=== PATIENT | female | born 1960 | race Hispanic/Latino ===

== ENCOUNTER 2019-09-22 05:37 | Inpatient (IN) | payer MEDICAID ==
[~2019-09-22] VITALS: Ht 162.6 cm; Wt 67.6 kg
[2019-09-22] VITALS (14 sets, daily range): BP systolic 114–141; BP diastolic 62–77
[~2019-09-22 05:37] MED LIST: ABAC1TAB17 PO; ATOR40TA69 PO; DOLU50TA PO; ESCI10TA54 PO; ESTRADIOL PO; LEVO100T12 PO; LOSA50TA64 PO; MARA150T PO; NAPR-1023 PO; VITAD50000 PO
[2019-09-22 06:15] LABS: BASOPHILS % (AUTO) 0.5 % (0.0-5.0); EOSINOPHILS % (AUTO) 2.4 % (0.0-8.0); HEMATOCRIT 40.2 % (36-48); LYMPHOCYTES % (AUTO) 24.5 % (21.0-51.0); MEAN CORPUSCULAR HEMOGLOBIN 32.8 pg (27.0-33.0); MEAN CORPUSCULAR HGB CONC 33.3 g/dL (32.0-36.0); MEAN CORPUSCULAR VOLUME 98.5 fL (79-99); MONOCYTES % (AUTO) 7.8 % (3.0-13.0); NEUTROPHILS % (AUTO) 64.6 % (40.0-77.0); PLATELET COUNT (AUTO) 205 K/uL (130-400); RED BLOOD CELL COUNT(AUTO) 4.08 MIL/uL (4.00-5.50); RED CELL DISTRIBUTION WIDTH 13.1 % (11.0-15.5); WHITE BLOOD COUNT (AUTO) 5.9 K/uL (4.8-10.8)
[2019-09-22 06:25] LABS: APPEARANCE,URINE Clear (CLEAR); BILIRUBIN,URINE Negative (NEGATIVE); COLOR,URINE Yellow (YELLOW); GLUCOSE, URINE (UA) Negative (NEGATIVE); KETONES,URINE Negative (NEGATIVE); LEUKOCYTE ESTERASE ,URINE Trace (NEGATIVE); NITRATE,URINE Negative (NEGATIVE); OCCULT BLOOD,URINE Negative (NEGATIVE); PROTEIN,URINE Negative (NEGATIVE); UROBILINOGEN,URINE 0.2 mg/dL (0.2-1.0)
[2019-09-22 06:26] LABS: CREATININE 0.8 mg/dL (0.5-1.5)
[2019-09-22 06:29] LABS: INR 0.98 (0.85-1.15); PARTIAL THROMBOPLASTIN TIME 29.6 SEC (26.3-35.5); PROTHROMBIN TIME 10.6 SEC (9.6-11.6)
[2019-09-22 07:02] LABS: BACTERIA,URINE Rare /HPF (None Seen); RBC,URINE 0-1 /HPF (0-1); SQUAMOUS EPITHELIAL CELL,UR Rare /HPF (0-2); WBC,URINE 0-1 /HPF (0-1)
[2019-09-22] MEDS ORDERED: LORA10TA7 PO (07:06)
[2019-09-22] MEDS ORDERED: NITROGLYCERIN 2 MG/VIAL VIAL IV ONE (07:17)
[2019-09-22] MEDS ORDERED: HEPARIN SODIUM 1000UNIT/ML 10ML VIAL ONE (07:17)
[2019-09-22] MEDS ORDERED: IOHEXOL 350 MG/ML 100ML INFUS..BTL IV ONE (07:17)
[2019-09-22] MEDS ORDERED: IOHEXOL-350 50ML VIAL IV ONE (07:17)
[2019-09-22] MEDS ORDERED: LIDOCAINE HCL 2% 20ML ONE (07:18)
[2019-09-22] MEDS ORDERED: SODIUM CHLORIDE 0.9% 1000ML 1,000 ML IV ONE (07:51)
[2019-09-22] MEDS ORDERED: DEXTROSE 50%-WATER 50 ML DISP.SYRIN IV PRN (08:30)
[2019-09-22] MEDS ORDERED: GLUCAGON 1MG KIT 1 MG ML IM PRN (08:30)
[2019-09-22] MEDS ORDERED: NAPROXEN 500 MG TABLET PO PRN (13:00)
--- NOTE | 2019-09-22 14:02 | NUR ---
TRANSFER REPORT GIVEN BY GENNARO ARCHULETA TO GENNARO GORDON. PT TRANSFERRED VIA BED TO ROOM 418. PT DENIES ANY PAIN, SOB AT THIS TIME. SITE TO RIGHT FEMORAL AREA DRY AND INTACT. SOFT TO TOUCH.
--- NOTE | 2019-09-22 14:15 | NUR ---
TRANSFER FROM DAYPATIENT RECEIVED PT IN SEMI MORRIS'S POSITION, A&OX3, CALM COOPERATIVE AND DOES NOT APPEAR TO BE IN ANY DISTRESS NOR ANY NEURO DEFICITS PRESENT. RT GROIN SOFT NONTENDER WITH NO OOZING OR HEMATOMA PRESENT, DP/PT PRESENT. CALL LIGHT WITHIN REACH.
[2019-09-22] MEDS: CITALOPRAM 20 MG TABLET PO SCH (14:31)
[2019-09-22] MEDS ORDERED: ACETAMINOPHEN 325 MG TAB PO PRN (16:00)
[2019-09-22] MEDS ORDERED: TRAMADOL HCL 50 MG TABLET PO PRN (16:00)
[2019-09-22] MEDS: DOLUTEGRAVIR SODIUM 50 MG PO SCH (21:00)
[2019-09-22] MEDS: ABACAVIR SULFATE PO SCH (21:00)
[2019-09-22] MEDS: MARAVIROC 150 MG PO SCH (21:00)
[2019-09-22] MEDS: ATORVASTATIN CALCIUM 40 MG TABLET PO SCH (21:00)
[2019-09-22] MEDS: LAMIVUDINE PO SCH (21:00)
[2019-09-22] MEDS: LORATADINE 10 MG TABLET PO SCH (21:18)
[2019-09-23] VITALS (19 sets, daily range): BP systolic 103–178; BP diastolic 49–89
[2019-09-23 04:18] LABS: HEMATOCRIT 41.2 % (36-48); MEAN CORPUSCULAR HGB CONC 33.5 g/dL (32.0-36.0); MEAN CORPUSCULAR VOLUME 98.6 fL (79-99); RED BLOOD CELL COUNT(AUTO) 4.18 MIL/uL (4.00-5.50); RED CELL DISTRIBUTION WIDTH 13.2 % (11.0-15.5); WHITE BLOOD COUNT (AUTO) 7.5 K/uL (4.8-10.8)
[2019-09-23 04:39] LABS: PARTIAL THROMBOPLASTIN TIME 28.9 SEC (26.3-35.5); PROTHROMBIN TIME 10.8 SEC (9.6-11.6)
[2019-09-23 05:00] LABS: BILIRUBIN,TOTAL 0.7 mg/dL (0.2-1.0); CREATININE 0.8 mg/dL (0.5-1.5); TOTAL PROTEIN, SERUM 7.7 g/dL (6.0-8.3)
[2019-09-23 05:16] LABS: POTASSIUM 4.4 mmol/L (3.5-5.1)
[2019-09-23] MEDS ORDERED: AMINOCAPROIC ACID 15,000 MG in SODIUM CHLORIDE 0.9% 500ML 420 ML IV PRN (06:00)
[2019-09-23] MEDS ORDERED: EPINEPHRINE 10 MG in SODIUM CHLORIDE 0.9% 240 ML IV PRN (06:00)
[2019-09-23] MEDS ORDERED: NOREPINEPHRINE BITARTRATE 8 MG in DEXTROSE 5%-WATER 250 ML IV PRN (06:00)
[2019-09-23] MEDS: LEVOTHYROXINE 100 MCG TABLET PO SCH (06:19)
[2019-09-23] MEDS ORDERED: LOSARTAN 50 MG TABLET PO SCH (09:00)
[2019-09-23] MEDS: MARAVIROC 150 MG PO SCH ×2 (09:00→19:59)
[2019-09-23] MEDS: ESTRADIOL 0.5 MG TABLET PO SCH (09:06)
[2019-09-23] MEDS: CITALOPRAM 20 MG TABLET PO SCH (09:06)
[2019-09-23] MEDS ORDERED: AMINOCAPROIC ACID 15,000 MG in SODIUM CHLORIDE 0.9% 500ML 500 ML IV PRN (10:15)
[2019-09-23] MEDS ORDERED: CEFAZOLIN SODIUM 1 GM VIAL ONE (10:37)
[2019-09-23] MEDS ORDERED: AMIODARONE HCL 50 MG/ML 3 ML VIAL ONE (10:43)
[2019-09-23] MEDS ORDERED: NITROGLYCERIN 50 MG/D5% WATER 1 BOT ONE (10:44)
[2019-09-23] MEDS ORDERED: ROPIVACAINE 0.5% 5MG/ML 30ML IJ ONE (11:03)
[2019-09-23] MEDS ORDERED: CEFAZOLIN SODIUM 1 GM VIAL IVP PRN (12:00)
[2019-09-23] MEDS ORDERED: ROPIVACAINE 0.2% 2MG/ML 100ML VIAL IJ ONE (12:25)
[2019-09-23] MEDS ORDERED: AMINOCAPROIC ACID 250 MG/ML 20 ML VIAL IV ONE ×2 (12:29→13:06)
[2019-09-23] MEDS ORDERED: CALCIUM CHLORIDE 100 MG/ML 10 ML SYG IVP ONE (12:29)
[2019-09-23] MEDS ORDERED: HEPARIN SODIUM 1000UNIT/ML 10ML VIAL IV ONE (12:29)
[2019-09-23] MEDS ORDERED: PHENYLEPHRINE HCL 10 MG/ML 1ML VIAL IV ONE (12:29)
[2019-09-23] MEDS ORDERED: MAGNESIUM SULFATE 1 GM/2 ML VIAL IM ONE (12:29)
[2019-09-23] MEDS ORDERED: SODIUM BICARB 8.4% 50ML SYRINGE IVP ONE (12:29)
[2019-09-23] MEDS ORDERED: ALBUMIN (HUMAN) 25% 50 ML IV ONE (12:29)
[2019-09-23] MEDS ORDERED: LIDOCAINE PF 2% 5ML ABBOJECT IVP ONE (12:29)
[2019-09-23] MEDS ORDERED: MANNITOL 25% 50ML VIAL IV ONE (12:29)
[2019-09-23] MEDS: ERGOCALCIFEROL (VITAMIN D2) 50,000 UNIT CAPSULE PO SCH (13:00)
[2019-09-23] MEDS ORDERED: MIDAZOLAM HCL 1 MG/ML 2ML VIAL ONE ×2 (13:03→13:06)
[2019-09-23] MEDS ORDERED: ESMOLOL HCL 10 MG/ML 10 ML VIAL ONE (13:05)
[2019-09-23] MEDS ORDERED: LIDOCAINE PF 2% 5ML ABBOJECT ONE (13:05)
[2019-09-23] MEDS ORDERED: PROTAMINE SULFATE 10 MG/ML 25ML VIAL IV ONE (13:05)
[2019-09-23] MEDS ORDERED: NOREPINEPHRINE BITARTRATE 1 MG/1 ML ML IV ONE (13:06)
[2019-09-23] MEDS ORDERED: ROCURONIUM 10MG/1ML SYR 10 MG/ML ML ONE (13:06)
[2019-09-23] MEDS ORDERED: FENTANYL CITRATE PF 50 MCG/1 ML 20ML VIAL IJ ONE (13:06)
[2019-09-23] MEDS ORDERED: PROPOFOL 10 MG/ML 20ML VIAL IV ONE (13:06)
[2019-09-23] MEDS ORDERED: HEPARIN SODIUM 1000UNIT/ML 10ML VIAL ONE (13:06)
[2019-09-23] MEDS ORDERED: EPINEPHRINE 1 MG/ML AMPULE ONE (13:06)
[2019-09-23] MEDS ORDERED: SODIUM BICARB 50MEQ 50ML VIAL ONE (13:06)
[2019-09-23] MEDS ORDERED: KETAMINE 50MG/ML SYRINGE 50 MG/ML DISP.SYRIN IV ONE (13:07)
[2019-09-23] MEDS ORDERED: DELNIDO FORMULA 1 BAG IV ONE (13:23)
[2019-09-23 13:29] LABS: ABG BASE EXCESS -0.3 mmol/L (-2.0-3.0); ABG HCO3 23.2 mmol/L (21.0-28.0); ABG OXYGEN SATURATION 99.5 % (95.0-99.0); ABG PCO2 35 mmHg (32-45)
[2019-09-23] MEDS ORDERED: SODIUM CHLORIDE 0.9% 500ML 500 ML IV SCH (14:05)
[2019-09-23] MEDS ORDERED: PROPOFOL 1000 MG/100 ML 100 ML IV PRN (14:15)
[2019-09-23] MEDS ORDERED: AMINOCAPROIC ACID 15,000 MG in SODIUM CHLORIDE 0.9% 250 ML IV SCH (14:15)
[2019-09-23] MEDS ORDERED: EPINEPHRINE 10 MG in DEXTROSE 5%-WATER 250 ML IV PRN (14:15)
[2019-09-23] MEDS ORDERED: SODIUM CHLORIDE 0.9% 250 ML IV PRN (14:15)
[2019-09-23] MEDS ORDERED: TRAMADOL HCL 50 MG TABLET PO PRN ×2 (14:15)
[2019-09-23] MEDS ORDERED: MORPHINE SULFATE 2 MG/ML 1ML SYG IV PRN ×2 (14:15)
[2019-09-23] MEDS ORDERED: SODIUM CHLORIDE 0.9% 10 ML VIAL IVP PRN (14:15)
[2019-09-23] MEDS ORDERED: ALBUMIN (HUMAN) 5% 250 ML IV PRN (14:15)
[2019-09-23] MEDS ORDERED: MAGNESIUM 2GM PREMIX 50ML 50 ML IV PRN (14:15)
[2019-09-23] MEDS ORDERED: SODIUM CHLORIDE 0.9% 1000ML 1,000 ML IV SCH (14:15)
[2019-09-23] MEDS ORDERED: CALCIUM GLUCONATE 1 GM in SODIUM CHLORIDE 0.9% 50 ML IV PRN (14:15)
[2019-09-23] MEDS ORDERED: INSULIN REGULAR, HUMAN 3ML 100 UNIT in SODIUM CHLORIDE 0.9% 99 ML IV SCH ×2 (14:15)
[2019-09-23] MEDS ORDERED: ACETAMINOPHEN 650 MG SUPPOSITORY RC PRN (14:15)
[2019-09-23] MEDS ORDERED: NOREPINEPHRINE 4MG/NS 250ML 250 ML IV PRN (14:15)
[2019-09-23] MEDS ORDERED: GLUCAGON 1MG KIT 1 MG ML IM PRN (14:15)
[2019-09-23] MEDS ORDERED: ACETAMINOPHEN 325 MG TAB PO PRN (14:15)
[2019-09-23] MEDS ORDERED: POTASSIUM PHOS 15 mMOL+NS250ML 250 ML IV PRN (14:15)
[2019-09-23] MEDS ORDERED: DEXTROSE 50%-WATER 50 ML DISP.SYRIN IV PRN (14:15)
[2019-09-23] MEDS ORDERED: NITROGLYCERIN 50 MG/D5% WATER 250 BOT IV SCH (14:15)
[2019-09-23 14:34] LABS: ABG BASE EXCESS -3.9 mmol/L (-2.0-3.0); ABG HCO3 20.5 mmol/L (21.0-28.0); ABG OXYGEN SATURATION 98.6 % (95.0-99.0); ABG PCO2 35 mmHg (32-45)
[2019-09-23 15:07] LABS: ABG BASE EXCESS -0.4 mmol/L (-2.0-3.0); ABG HCO3 23.1 mmol/L (21.0-28.0); ABG OXYGEN SATURATION 98.5 % (95.0-99.0); ABG PCO2 34 mmHg (32-45)
[2019-09-23] MEDS ORDERED: GLYCOPYRROLATE 1 MG/5 ML SYRINGE ONE (15:18)
[2019-09-23 15:57] LABS: ABG BASE EXCESS -8.8 mmol/L (-2.0-3.0); ABG HCO3 16.8 mmol/L (21.0-28.0); ABG OXYGEN SATURATION 80.2 % (95.0-99.0); ABG PCO2 35 mmHg (32-45)
[2019-09-23 16:50] LABS: ABG BASE EXCESS -4.2 mmol/L (-2.0-3.0); ABG HCO3 20.6 mmol/L (21.0-28.0); ABG OXYGEN SATURATION 98.2 % (95.0-99.0); ABG PCO2 37 mmHg (32-45)
[2019-09-23 16:51] LABS: HEMATOCRIT 37.3 % (36-48); MEAN CORPUSCULAR HEMOGLOBIN 32.6 pg (27.0-33.0); MEAN CORPUSCULAR HGB CONC 33.5 g/dL (32.0-36.0); MEAN CORPUSCULAR VOLUME 97.4 fL (79-99); RED BLOOD CELL COUNT(AUTO) 3.83 MIL/uL (4.00-5.50); WHITE BLOOD COUNT (AUTO) 27.3 K/uL (4.8-10.8)
[2019-09-23 17:08] LABS: INR 1.11 (0.85-1.15); PARTIAL THROMBOPLASTIN TIME 24.1 SEC (26.3-35.5); PROTHROMBIN TIME 11.9 SEC (9.6-11.6)
[2019-09-23] MEDS: POTASSIUM CHLORIDE 20MEQ/100ML 100 ML IV PRN ×9 (17:27→23:09)
[2019-09-23] MEDS: SODIUM BICARB 50MEQ 50ML VIAL IV PRN ×6 (17:27→21:55)
[2019-09-23] MEDS: Q-PUMP 1 EACH IRRIG SCH (17:29)
[2019-09-23 17:35] LABS: MAGNESIUM 3.1 mg/dL (1.80-2.40); PHOSPHORUS 2.8 mg/dL (2.5-4.9)
[2019-09-23 17:47] LABS: ABG BASE EXCESS 1.4 mmol/L (-2.0-3.0); ABG HCO3 25.6 mmol/L (21.0-28.0); ABG OXYGEN SATURATION 98.9 % (95.0-99.0); ABG PCO2 39 mmHg (32-45)
[2019-09-23 18:16] LABS: POTASSIUM 2.3 mmol/L (3.5-5.1)
[2019-09-23] MEDS ORDERED: PHARMACY COMMUNICATION MISC SCH (19:30)
[2019-09-23 19:33] LABS: ABG BASE EXCESS -0.6 mmol/L (-2.0-3.0); ABG HCO3 23.1 mmol/L (21.0-28.0); ABG OXYGEN SATURATION 98.2 % (95.0-99.0); ABG PCO2 35 mmHg (32-45)
[2019-09-23] MEDS: FAMOTIDINE/PF 20 MG/2 ML VIAL IV SCH (19:51)
[2019-09-23] MEDS: DOLUTEGRAVIR SODIUM 50 MG PO SCH (19:59)
[2019-09-23] MEDS: ABACAVIR SULFATE PO SCH (19:59)
[2019-09-23] MEDS: LAMIVUDINE PO SCH (19:59)
[2019-09-23] MEDS: ATORVASTATIN CALCIUM 40 MG TABLET PO SCH (20:00)
[2019-09-23] MEDS: CEFAZOLIN SODIUM 1 GM VIAL IVP SCH (20:40)
[2019-09-23] MEDS: ONDANSETRON HCL 4 MG/2 ML VIAL IV PRN (20:45)
[2019-09-23] MEDS: LORATADINE 10 MG TABLET PO SCH (21:00)
[2019-09-23 21:47] LABS: ABG BASE EXCESS -3.2 mmol/L (-2.0-3.0); ABG HCO3 21.5 mmol/L (21.0-28.0); ABG OXYGEN SATURATION 98.4 % (95.0-99.0); ABG PCO2 37 mmHg (32-45)
[2019-09-23] MEDS ORDERED: DEXTROSE 5%-WATER 1,000 ML IV ONE (22:02)
[2019-09-23 22:49] LABS: CREATININE 1.3 mg/dL (0.5-1.5); MAGNESIUM 1.9 mg/dL (1.80-2.40); POTASSIUM 3.4 mmol/L (3.5-5.1)
[2019-09-23] MEDS ORDERED: DEXTROSE 5%-WATER 200 ML IV ONE (22:58)
[2019-09-24] VITALS (31 sets, daily range): BP systolic 106–151; BP diastolic 52–97
[2019-09-24 00:04] LABS: ABG BASE EXCESS 4.1 mmol/L (-2.0-3.0); ABG HCO3 28.6 mmol/L (21.0-28.0); ABG OXYGEN SATURATION 98.3 % (95.0-99.0); ABG PCO2 43 mmHg (32-45)
[2019-09-24] MEDS: POTASSIUM CHLORIDE 20MEQ/100ML 100 ML IV PRN (00:09)
[2019-09-24 02:38] LABS: ABG BASE EXCESS 4.4 mmol/L (-2.0-3.0); ABG OXYGEN SATURATION 98.3 % (95.0-99.0); ABG PCO2 49 mmHg (32-45)
--- NOTE | 2019-09-24 02:45 | NUR ---
EXTUBATION PT TOLERATED WEANING WELL. 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 ABG WITHIN PARAMETERS. PT WAS ABLE TO ACHIEVE NIF -35 AND VC 840. PT EXTUBATED AND PLACED ON 40% CAFM. PT ENCOURAGED STAY AWAKE AND TO TAKE SLOW DEEP BREATHS. WILL CONTINUE TO MONITOR
[2019-09-24 04:04] LABS: ABG BASE EXCESS 6.2 mmol/L (-2.0-3.0); ABG HCO3 31.8 mmol/L (21.0-28.0); ABG OXYGEN SATURATION 97.9 % (95.0-99.0); ABG PCO2 49 mmHg (32-45)
[2019-09-24 04:20] LABS: HEMATOCRIT 33.3 % (36-48); MEAN CORPUSCULAR HEMOGLOBIN 33.3 pg (27.0-33.0); MEAN CORPUSCULAR HGB CONC 34.2 g/dL (32.0-36.0); MEAN CORPUSCULAR VOLUME 97.4 fL (79-99); RED BLOOD CELL COUNT(AUTO) 3.42 MIL/uL (4.00-5.50); RED CELL DISTRIBUTION WIDTH 13.2 % (11.0-15.5); WHITE BLOOD COUNT (AUTO) 15.7 K/uL (4.8-10.8)
--- NOTE | 2019-09-24 04:30 | NUR ---
LEVOPHED LEVOPHED WEANED OFF AT THIS TIME ASBP 140-150. WILL CONTINUE TO MONITOR.
[2019-09-24 04:38] LABS: CREATININE 0.9 mg/dL (0.5-1.5); MAGNESIUM 2.3 mg/dL (1.80-2.40); PHOSPHORUS 1.4 mg/dL (2.5-4.9); POTASSIUM 3.9 mmol/L (3.5-5.1)
[2019-09-24] MEDS: CEFAZOLIN SODIUM 1 GM VIAL IVP SCH ×2 (04:47→14:06)
[2019-09-24] MEDS ORDERED: PHARMACY COMMUNICATION MISC SCH (05:00)
[2019-09-24 05:12] LABS: INR 1.03 (0.85-1.15); PARTIAL THROMBOPLASTIN TIME 23.3 SEC (26.3-35.5); PROTHROMBIN TIME 11.1 SEC (9.6-11.6)
[2019-09-24] MEDS: TRAMADOL HCL 50 MG TABLET PO PRN (06:33)
[2019-09-24] MEDS: LEVOTHYROXINE 100 MCG TABLET PO SCH (06:33)
[2019-09-24] MEDS: ASPIRIN 325MG EC TAB 325 MG TABLET.DR PO SCH (09:11)
[2019-09-24] MEDS: CITALOPRAM 20 MG TABLET PO SCH (09:12)
[2019-09-24] MEDS: FUROSEMIDE 10 MG/ML 2ML VIAL IV SCH ×2 (09:12→20:58)
[2019-09-24] MEDS: ESTRADIOL 0.5 MG TABLET PO SCH (09:12)
[2019-09-24] MEDS: FAMOTIDINE/PF 20 MG/2 ML VIAL IV SCH ×2 (09:19→20:58)
[2019-09-24] MEDS: MARAVIROC 150 MG PO SCH ×2 (09:19→21:00)
[2019-09-24] MEDS: Q-PUMP 1 EACH IRRIG SCH (17:00)
[2019-09-24] MEDS: LORATADINE 10 MG TABLET PO SCH (20:58)
[2019-09-24] MEDS: ATORVASTATIN CALCIUM 40 MG TABLET PO SCH (20:58)
[2019-09-24] MEDS: DOLUTEGRAVIR SODIUM 50 MG PO SCH (21:00)
[2019-09-24] MEDS: LAMIVUDINE PO SCH (21:00)
[2019-09-24] MEDS: ABACAVIR SULFATE PO SCH (21:00)
[2019-09-25] VITALS (24 sets, daily range): BP systolic 93–155; BP diastolic 50–99
[2019-09-25 03:44] LABS: HEMATOCRIT 32.3 % (36-48); MEAN CORPUSCULAR HEMOGLOBIN 32.5 pg (27.0-33.0); MEAN CORPUSCULAR HGB CONC 32.5 g/dL (32.0-36.0); RED BLOOD CELL COUNT(AUTO) 3.23 MIL/uL (4.00-5.50); RED CELL DISTRIBUTION WIDTH 13.9 % (11.0-15.5); WHITE BLOOD COUNT (AUTO) 19.5 K/uL (4.8-10.8)
[2019-09-25 04:08] LABS: CREATININE 0.7 mg/dL (0.5-1.5); POTASSIUM 3.6 mmol/L (3.5-5.1)
[2019-09-25] MEDS: TRAMADOL HCL 50 MG TABLET PO PRN ×2 (04:15→16:41)
[2019-09-25] MEDS: ONDANSETRON HCL 4 MG/2 ML VIAL IV PRN ×2 (04:15→11:30)
[2019-09-25] MEDS: LEVOTHYROXINE 100 MCG TABLET PO SCH (05:47)
[2019-09-25] MEDS: POTASSIUM CHLORIDE 20MEQ/100ML 100 ML IV PRN (07:30)
[2019-09-25] MEDS: INSULIN HUMULIN R 100 UNIT/ML 3ML SQ SCH ×4 (07:30→21:00)
[2019-09-25] MEDS ORDERED: POTASSIUM CHLORIDE 10% ELIXIR 20 MEQ/15 ML UDCUP PO PRN (08:30)
--- NOTE | 2019-09-25 08:30 | NUR ---
POTASSIUM REPLACEMENT DR. HICKS MADE AWARE THAT IV POTASSIUM INFUSION CAUSING PATIENT PAIN. HE GAVE ORDERS FOR ORAL POTASSIUM REPLACEMENT. ORDER WAS ENTERED INTO SYSTEM. IV POTASSIUM WAS NOT INFUSED; PO POTASSIUM WILL CONTINUE TO BE REPLACED PER PROTOCOL.
[2019-09-25] MEDS: FAMOTIDINE/PF 20 MG/2 ML VIAL IV SCH ×2 (08:39→21:09)
[2019-09-25] MEDS: ASPIRIN 325MG EC TAB 325 MG TABLET.DR PO SCH (08:40)
[2019-09-25] MEDS: POTASSIUM CHLORIDE 20 MEQ ERTAB PO PRN ×2 (08:40→12:33)
[2019-09-25] MEDS: FUROSEMIDE 20 MG TABLET PO SCH ×2 (08:40→16:41)
[2019-09-25] MEDS: CITALOPRAM 20 MG TABLET PO SCH (08:40)
[2019-09-25] MEDS: METOPROLOL TARTRATE 25 MG TAB PO SCH ×2 (08:41→21:05)
[2019-09-25] MEDS: MARAVIROC 150 MG PO SCH ×2 (08:47→21:00)
[2019-09-25] MEDS: ESTRADIOL 0.5 MG TABLET PO SCH (08:47)
--- NOTE | 2019-09-25 14:58 | NUR ---
INITIAL TRIED TO CALL ALL NUMBERS ON FACE SHEET- NO ANSWER, MET W PATIENT AT BEDSIDE, PATIENT LIVES ALONE, STATES GRAND DAUGHTER- WILL COME TO [facility] TO ASSIST IN RECOVERY. [facility] HOME SAFE & ACCESSIBLE, PREVIOUSLY INDEPENDENT,NO DME, DRIVES, DCP HOME PHONE NUMBERS UPDATED WITH THE HELP OF THE [facility] AND FAXED TO REGISTRATION Addendum: 09/25/19 at 1503 by MISAEL VIVAS RN CM Amended: Links added.
[2019-09-25] MEDS: Q-PUMP 1 EACH IRRIG SCH (17:00)
[2019-09-25] MEDS: DOLUTEGRAVIR SODIUM 50 MG PO SCH (21:00)
[2019-09-25] MEDS: ABACAVIR SULFATE PO SCH (21:00)
[2019-09-25] MEDS: LAMIVUDINE PO SCH (21:00)
[2019-09-25] MEDS: ATORVASTATIN CALCIUM 40 MG TABLET PO SCH (21:05)
[2019-09-25] MEDS: LORATADINE 10 MG TABLET PO SCH (21:05)
--- NOTE | 2019-09-25 22:26 | NUR ---
ON Q PUMP,PACING WIRES AND CHEST TUBE REMOVED . PATIENT TOLERATED WELL.
--- NOTE | 2019-09-25 23:00 | NUR ---
BOYD CATHETER DC'D
--- NOTE | 2019-09-25 23:53 | NUR ---
REPORT GIVEN TO GENNARO JAMES. PATIENT TRANSFERRED TO ROOM 423 PCCU
[2019-09-26] VITALS (7 sets, daily range): BP systolic 96–129; BP diastolic 54–75
--- NOTE | 2019-09-26 00:20 | NUR ---
RECEIVED TRANSFER PT FROM ICU PT A/A/O X3. NO CO OF PAIN. TELE MONITOR ON- RUNNING SINUS 60S. PT ON 2 L O2 NC, UNLABORED RESPIRATION. PT AMBULATED TO RESTROOM, STEADY GAIT OBSERVED. SCDS APPLIED ONCE IN BED. PT REPORTS SHE VOIDED- UNABLE TO ASSESS D/T PT FLUSHED URINE. RUQ DRESSING WITH SCANT, LIGHT PINK DRAINAGE FROM RECENT REMOVAL OF CHEST TUBES, SUTURES REMAIN IN PLACE. DRESSING FROM PAIN PUMP SITE DRY AND INTACT, NO DRAINAGE NOTED. RIGHT UPPER CHEST DRESSING DRY AND INTACT. INCISION FOR VALVE REPLACEMENT SITE APPROXIMATED, NO REDNESS OR DRAINAGE. BED LOCKED IN LOWEST POSITION, CALL LIGHT WITHIN REACH. NO SKID SOCKS ON. REINFORCED SAFETY PRECAUTIONS TO CALL FOR ASSISTANCE WHEN GETTING OUT OF BED- PT VERBALIZED AGREEMENT.
[2019-09-26 04:53] LABS: HEMATOCRIT 32.6 % (36-48); MEAN CORPUSCULAR HEMOGLOBIN 33.4 pg (27.0-33.0); MEAN CORPUSCULAR HGB CONC 33.1 g/dL (32.0-36.0); MEAN CORPUSCULAR VOLUME 100.9 fL (79-99); NUCLEATED RED BLOOD CELLS 0.1 % (0.0-0.19); RED BLOOD CELL COUNT(AUTO) 3.23 MIL/uL (4.00-5.50); RED CELL DISTRIBUTION WIDTH 13.1 % (11.0-15.5); WHITE BLOOD COUNT (AUTO) 16.6 K/uL (4.8-10.8)
[2019-09-26 05:17] LABS: CREATININE 0.7 mg/dL (0.5-1.5); POTASSIUM 3.9 mmol/L (3.5-5.1)
[2019-09-26] MEDS: LEVOTHYROXINE 100 MCG TABLET PO SCH (06:52)
[2019-09-26] MEDS: INSULIN HUMULIN R 100 UNIT/ML 3ML SQ SCH ×4 (07:25→21:00)
--- NOTE | 2019-09-26 08:45 | NUR ---
AM ASSESSMENT PT SITTING IN CARDIAC RECLINER, RESTING. A/O X 3. NO SOB. NO DISTRESS NOTED. O2 NC @ 2L. DENIES CHEST PAIN OR DISCOMFORT. DENIES PALPITATIONS. DENIES INCISIONAL PAIN. TELE: SR. RT UPPER & LOWER CHEST INCISION DSG DRY & INTACT. NO DRAINAGE NOTED. RT GROIN INCISION DSG DRY & INTACT. NO DRAINAGE NOTED. STERNAL PRECAUTIONS REINFORCED @ THIS TIME. IS PURPOSE & IMPORTANCE ALSO REINFORCED. IS 500-750 ML. DENIES N/V AND/OR DIARRHEA. UP W/ASSISTANCE. INSTRUCTED TO CALL FOR ASSISTANCE. CALL SUSSY W/IN REACH.
[2019-09-26] MEDS: FAMOTIDINE 20MG TAB 20 MG TAB PO SCH ×2 (08:57→22:03)
[2019-09-26] MEDS: FUROSEMIDE 20 MG TABLET PO SCH ×2 (08:58→16:16)
[2019-09-26] MEDS: METOPROLOL TARTRATE 25 MG TAB PO SCH ×2 (08:59→22:03)
[2019-09-26] MEDS: CITALOPRAM 20 MG TABLET PO SCH (08:59)
[2019-09-26] MEDS: ASPIRIN 325MG EC TAB 325 MG TABLET.DR PO SCH (09:00)
[2019-09-26] MEDS: ENOXAPARIN SODIUM 30 MG/0.3 ML SQ SCH (09:02)
[2019-09-26] MEDS: ESTRADIOL 0.5 MG TABLET PO SCH (09:04)
[2019-09-26] MEDS: MARAVIROC 150 MG PO SCH ×2 (09:05→21:00)
[2019-09-26] MEDS: ERGOCALCIFEROL (VITAMIN D2) 50,000 UNIT CAPSULE PO SCH (13:19)
--- NOTE | 2019-09-26 13:24 | NUR ---
MD VISIT DR HERNANDEZ IN TO SEE PT. PER MD PASCALE MANCINI PT HOME TODAY. REMINDED MD HE'S PRIMARY, ORDERS & SCRIPTS NEED TO BE ENTERED.
[2019-09-26] MEDS: Q-PUMP 1 EACH IRRIG SCH (16:16)
[2019-09-26] MEDS: LAMIVUDINE PO SCH (21:00)
[2019-09-26] MEDS: ABACAVIR SULFATE PO SCH (21:00)
[2019-09-26] MEDS: DOLUTEGRAVIR SODIUM 50 MG PO SCH (21:00)
[2019-09-26] MEDS: ATORVASTATIN CALCIUM 40 MG TABLET PO SCH (22:03)
[2019-09-26] MEDS: LORATADINE 10 MG TABLET PO SCH (22:03)
[2019-09-27 03:24] VITALS: BP 110/63
[2019-09-27 05:17] LABS: HEMATOCRIT 32.5 % (36-48); MEAN CORPUSCULAR HEMOGLOBIN 32.8 pg (27.0-33.0); MEAN CORPUSCULAR HGB CONC 33.2 g/dL (32.0-36.0); MEAN CORPUSCULAR VOLUME 98.8 fL (79-99); NUCLEATED RED BLOOD CELLS 0.2 % (0.0-0.19); RED BLOOD CELL COUNT(AUTO) 3.29 MIL/uL (4.00-5.50); RED CELL DISTRIBUTION WIDTH 12.8 % (11.0-15.5); WHITE BLOOD COUNT (AUTO) 8.9 K/uL (4.8-10.8)
[2019-09-27 05:28] LABS: CREATININE 0.8 mg/dL (0.5-1.5); POTASSIUM 3.9 mmol/L (3.5-5.1)
[2019-09-27] MEDS: LEVOTHYROXINE 100 MCG TABLET PO SCH (06:09)
[2019-09-27] MEDS: INSULIN HUMULIN R 100 UNIT/ML 3ML SQ SCH ×2 (06:10→11:17)
[2019-09-27] MEDS: POTASSIUM CHLORIDE 20 MEQ ERTAB PO PRN (06:51)
[2019-09-27 07:21] VITALS: BP 112/65
[2019-09-27] MEDS: CITALOPRAM 20 MG TABLET PO SCH (08:15)
[2019-09-27] MEDS: ASPIRIN 325MG EC TAB 325 MG TABLET.DR PO SCH (08:16)
[2019-09-27] MEDS: FAMOTIDINE 20MG TAB 20 MG TAB PO SCH (08:16)
[2019-09-27] MEDS: FUROSEMIDE 20 MG TABLET PO SCH (08:16)
[2019-09-27] MEDS: METOPROLOL TARTRATE 25 MG TAB PO SCH (08:17)
[2019-09-27] MEDS: ENOXAPARIN SODIUM 30 MG/0.3 ML SQ SCH (08:17)
[2019-09-27] MEDS: ESTRADIOL 0.5 MG TABLET PO SCH (08:20)
[2019-09-27] MEDS: MARAVIROC 150 MG PO SCH (08:20)
--- NOTE | 2019-09-27 09:58 | NUR ---
AM ASSESSMENT PT SITTING IN CARDIAC RECLINER, RESTING. A/O X 3. NO SOB. NO DISTRESS NOTED. DENIES CHEST PAIN OR DISCOMFORT. DENIES PALPITATIONS. DENIES INCISIONAL PAIN. TELE: SR. SURGICAL INCISIONS DSG DRY INTACT. NO DRAINAGE NOTED. DENIES N/V AND/OR DIARRHEA. STERNAL PRECAUTIONS REINFORCED. IS 750 ML. UP W/ASSISTANCE. INSTRUCTED TO CALL FOR ASSISTANCE. CALL SUSSY W/IN REACH.
[2019-09-27] MEDS ORDERED: FURO20TA6 PO (10:07)
[2019-09-27] MEDS ORDERED: METO25 PO (10:07)
[2019-09-27] MEDS ORDERED: ASPI-891 PO (10:07)
[2019-09-27] MEDS ORDERED: TRAM50TA4 PO (10:07)
[2019-09-27 10:59] VITALS: BP 109/70
--- NOTE | 2019-09-27 12:40 | NUR ---
DISCHARGE VERBAL & WRITTEN DISCHARGE INSTRUCTIONS REVIEWED & GIVEN TO PT IN [place]. QUESTIONS ENCOURAGED & CLARIFIED. PROPER CARE & ACTIVITY AFTER MICS AVR REVIEWED. STERNAL PRECAUTIONS REINFORCED. IS IMPORTANCE & PURPOSE REINFORCED. NEW PRESCRIBED MEDICATIONS REVIEWED. PT INFORMED PRESCRIPTION TRANSMITTED TO PHARMACY IN FILE. F.U APPT INFO GIVEN. TELE CARMEN REMOVED EARLIER. PT WOULD LIKE TO TAKE A SHOWER PRIOR TO LEAVING HOME. FAMILY TO TAKE PT HOME.
--- NOTE | 2019-09-27 14:20 | NUR ---
DISCHARGE FAMILY HERE TO TAKE PT HOME. PT TAKEN TO PRIVATE VEHICLE VIA WC BY JACE LOZANO.
== END 2019-09-27 14:20 | disposition home or self-care (01) | DRG 163 ==
LOC: DAH 05:37 → DAHIP 05:38 → 4CH 13:58 → PAH.CVR 09-23 11:32 → DAHIP 09-24 06:21 → 4DH 09-25 23:18
PROVIDERS: ADMIT Thoracic Surgery (Cardiothoracic Vascular Surgery); ATTEND Thoracic Surgery (Cardiothoracic Vascular Surgery)
PROC: 4A023N7 Measurement of Cardiac Sampling and Pressure, Left Heart, Percutaneous Approach (ICD-10-PCS; principal; 2019-09-22)
PROC: B2111ZZ Fluoroscopy of Multiple Coronary Arteries using Low Osmolar Contrast (ICD-10-PCS; 2019-09-22)
PROC: 02RF08Z Replacement of Aortic Valve with Zooplastic Tissue, Open Approach (ICD-10-PCS; 2019-09-23)
PROC: 5A1221Z Performance of Cardiac Output, Continuous (ICD-10-PCS; 2019-09-23)
PROC: B24BZZ4 Ultrasonography of Heart with Aorta, Transesophageal (ICD-10-PCS; 2019-09-23)
PROC: 3E080GC Introduction of Other Therapeutic Substance into Heart, Open Approach (ICD-10-PCS; 2019-09-23)
DX: I35.0 Nonrheumatic aortic (valve) stenosis (principal); J81.1 Chronic pulmonary edema; G83.9 Paralytic syndrome, unspecified; I95.9 Hypotension, unspecified; E87.70 Fluid overload, unspecified; E03.9 Hypothyroidism, unspecified; E78.5 Hyperlipidemia, unspecified; I10 Essential (primary) hypertension; E78.00 Pure hypercholesterolemia, unspecified; R09.02 Hypoxemia; R06.89 Other abnormalities of breathing; Z79.899 Other long term (current) drug therapy; Z95.3 Presence of xenogenic heart valve; Z90.710 Acquired absence of both cervix and uterus; Z82.49 Family history of ischemic heart disease and other diseases of the circulatory system; Z21 Asymptomatic human immunodeficiency virus [HIV] infection status
CPT/HCPCS: 36415; 71045; 80048; 80053; 80061; 81001; 82330; 82435; 82803; 82947; 82948; 83036; 83605; 83735; 83880; 84100; 84132; 84295; 85018; 85025; 85027; 85610; 85730; 86850; 86900; 86901; 86922; 93005; 93313; 93318; 93454; 93880; 94002; 94003; 94010; 94150; 97039; A4357; A4606; A7048; C1760; C1894; G0378; J0171; J0282; J0610; J0690; J1644; J1650; J1815; J1940; J2001; J2150; J2250; J2370; J2405; J2704; J2720; J2795; J3010; J3475; J3480; J3490; J7030; J7040; J7060; J7070; P9045; P9047; Q9967

== ENCOUNTER → 2021-07-18 | Outpatient (CLI) | payer MEDICAID ==
[~2021-07-18] MED LIST changes: +ABAC1TAB PO; -ABAC1TAB17 PO; +ASPI-891 PO; +ESCI-8 PO; -ESCI10TA54 PO; +FURO20TA6 PO; +IOHEXOL-350 75 ML VIAL IV ONE; +LORA10TA7 PO; -LOSA50TA64 PO; +METO25 PO; -NAPR-1023 PO; +TRAM50TA4 PO
== END | disposition home or self-care (01) ==
LOC: RAH 09:45
PROVIDERS: ATTEND Internal Medicine Cardiovascular Disease
DX: I65.22 Occlusion and stenosis of left carotid artery (principal); I25.10 Atherosclerotic heart disease of native coronary artery without angina pectoris; I70.0 Atherosclerosis of aorta
CPT/HCPCS: 70498; Q9967

== ENCOUNTER 2021-10-24 09:44 | Inpatient (IN) | payer MEDICAID ==
[2021-10-20 11:09] LABS: APPEARANCE,URINE Clear (CLEAR); BILIRUBIN,URINE Negative (NEGATIVE); COLOR,URINE Yellow (YELLOW); GLUCOSE, URINE (UA) >=1000 mg/dL (NEGATIVE); KETONES,URINE Negative (NEGATIVE); LEUKOCYTE ESTERASE ,URINE Negative (NEGATIVE); NITRATE,URINE Negative (NEGATIVE); OCCULT BLOOD,URINE Negative (NEGATIVE); PROTEIN,URINE Negative (NEGATIVE); UROBILINOGEN,URINE 0.2 mg/dL (0.2-1.0)
[2021-10-20 11:15] LABS: BASOPHILS % (AUTO) 0.8 % (0.0-5.0); EOSINOPHILS % (AUTO) 1.6 % (0.0-8.0); HEMATOCRIT 44.6 % (36-48); LYMPHOCYTES % (AUTO) 27.6 % (21.0-51.0); MEAN CORPUSCULAR HEMOGLOBIN 32.5 pg (27.0-33.0); MEAN CORPUSCULAR HGB CONC 33.9 g/dL (32.0-36.0); MEAN CORPUSCULAR VOLUME 96.1 fL (79-99); NEUTROPHILS % (AUTO) 63.8 % (40.0-77.0); PLATELET COUNT (AUTO) 219 K/uL (130-400); RED BLOOD CELL COUNT(AUTO) 4.64 MIL/uL (4.00-5.50); RED CELL DISTRIBUTION WIDTH 12.6 % (11.0-15.5); WHITE BLOOD COUNT (AUTO) 5.1 K/uL (4.8-10.8)
[2021-10-20 11:20] LABS: CREATININE 0.7 mg/dL (0.5-1.5); POTASSIUM 4.1 mmol/L (3.5-5.1)
[2021-10-20 11:35] LABS: BACTERIA,URINE None Seen /HPF (None Seen); RBC,URINE None Seen /HPF (0-1); WBC,URINE None Seen /HPF (0-1)
[2021-10-20 11:44] LABS: INR 0.98 (0.85-1.15); PROTHROMBIN TIME 10.7 SEC (9.6-11.6)
[2021-10-20 11:45] LABS: PARTIAL THROMBOPLASTIN TIME 29.9 SEC (26.3-35.5)
[2021-10-20 12:18] VITALS: BP 140/69
[2021-10-24] VITALS (11 sets, daily range): BP systolic 115–140; BP diastolic 55–77
[~2021-10-24] VITALS: Ht 162.6 cm; Wt 62.4 kg
[~2021-10-24 09:44] MED LIST changes: -ABAC1TAB PO; +AEC81 PO; -ASPI-891 PO; +EMPA25TA PO; -IOHEXOL-350 75 ML VIAL IV ONE; -LEVO100T12 PO; +LEVO125C4 PO; -LORA10TA7 PO; +LOSA50TA64 PO; +METO-408 PO; -METO25 PO; +NAPR-1023 PO
[2021-10-24] MEDS ORDERED: 0.9%NACL 1000ML 1,000 ML IV ONE (11:29)
[2021-10-24] MEDS ORDERED: LIDOCAINE HCL 1% MDV 50ML VIAL ONE (12:35)
[2021-10-24] MEDS ORDERED: CEFAZOLIN SODIUM 1 GM VIAL ONE ×2 (12:35→13:16)
[2021-10-24] MEDS ORDERED: PROPOFOL 10 MG/ML 20ML VIAL IV ONE ×2 (12:47→13:51)
[2021-10-24] MEDS ORDERED: SUCCINYLCHOLINE CHLORIDE 20 MG/ML 10 ML VIAL ONE (12:47)
[2021-10-24] MEDS ORDERED: DEXAMETHASONE SOD PHOSPHATE 10MG/ML 1ML VIAL ONE (12:47)
[2021-10-24] MEDS ORDERED: LIDOCAINE PF 100MG/5ML (2%) SYRINGE 5ML ONE (12:47)
[2021-10-24] MEDS ORDERED: NEOSTIGMINE 5MG/5ML SYR IV ONE (12:48)
[2021-10-24] MEDS ORDERED: MIDAZOLAM HCL 1 MG/ML 2ML VIAL ONE (12:48)
[2021-10-24] MEDS ORDERED: GLYCOPYRROLATE 1 MG/5 ML SYRINGE ONE (12:48)
[2021-10-24] MEDS ORDERED: ONDANSETRON 4MG INJ ONE (12:48)
[2021-10-24] MEDS ORDERED: ROCURONIUM 10MG/1ML SYR 10 MG/ML ML ONE ×2 (12:48→13:42)
[2021-10-24] MEDS ORDERED: FENTANYL CITRATE PF 50 MCG/1 ML 2ML VIAL ONE ×2 (12:48→13:35)
[2021-10-24] MEDS ORDERED: TRAMADOL HCL 50 MG TABLET PO PRN ×2 (14:00)
[2021-10-24] MEDS ORDERED: ONDANSETRON 4MG INJ IVP PRN (14:00)
[2021-10-24] MEDS ORDERED: ACETAMINOPHEN 325 MG TAB PO PRN (14:00)
[2021-10-24] MEDS ORDERED: THROMBIN-JMI 20000 UNIT KIT TP ONE (14:51)
[2021-10-24] MEDS ORDERED: MEPERIDINE-PF 25 MG/ML SYG ONE (15:34)
[2021-10-24] MEDS ORDERED: HYDRALAZINE 20MG/ML VIAL ONE (15:39)
[2021-10-24] MEDS: FUROSEMIDE 20 MG TABLET PO SCH (16:44)
[2021-10-24] MEDS: MARAVIROC 150 MG PO SCH (21:00)
[2021-10-24] MEDS ORDERED: DOLUTEGRAVIR SODIUM 50 MG PO SCH (21:00)
[2021-10-24] MEDS: CEFAZOLIN SODIUM 1 GM VIAL IVP SCH (22:28)
[2021-10-25] VITALS (9 sets, daily range): BP systolic 112–149; BP diastolic 61–86
[2021-10-25] MEDS: CEFAZOLIN SODIUM 1 GM VIAL IVP SCH (05:50)
[2021-10-25] MEDS ORDERED: LEVOTHYROXINE 125 MCG TABLET PO SCH (06:30)
[2021-10-25] MEDS: FUROSEMIDE 20 MG TABLET PO SCH (08:28)
[2021-10-25] MEDS: MARAVIROC 150 MG PO SCH (08:45)
[2021-10-25] MEDS ORDERED: ESTRADIOL 0.5 MG TABLET PO SCH (09:00)
[2021-10-25] MEDS ORDERED: CITALOPRAM 20 MG TABLET PO SCH (09:00)
[2021-10-25] MEDS ORDERED: ASPIRIN 81 MG EC TAB PO SCH (09:00)
[2021-10-25] MEDS ORDERED: LOSARTAN 50 MG TABLET PO SCH (09:00)
[2021-10-25] MEDS ORDERED: EMPAGLIFLOZIN 25 MG PO SCH (09:00)
[2021-10-25] MEDS ORDERED: ATORVASTATIN 40 MG TABLET PO SCH (09:00)
[2021-10-25] MEDS ORDERED: METOPROLOL SUCCINATE 50 MG TAB.SR.24H PO SCH (09:00)
== END 2021-10-25 11:00 | disposition home or self-care (01) | DRG 24 ==
LOC: EDSTATUS 10:03 → DAHIP 10:22 → 2BH 16:36
PROVIDERS: ADMIT Thoracic Surgery (Cardiothoracic Vascular Surgery); ATTEND Thoracic Surgery (Cardiothoracic Vascular Surgery)
PROC: 03CL0ZZ Extirpation of Matter from Left Internal Carotid Artery, Open Approach (ICD-10-PCS; 2021-10-24)
PROC: 03UL0JZ Supplement Left Internal Carotid Artery with Synthetic Substitute, Open Approach (ICD-10-PCS; 2021-10-24)
PROC: 03CJ0ZZ Extirpation of Matter from Left Common Carotid Artery, Open Approach (ICD-10-PCS; principal; 2021-10-24 13:01)
DX: I65.22 Occlusion and stenosis of left carotid artery (principal); E78.00 Pure hypercholesterolemia, unspecified; I10 Essential (primary) hypertension; Z79.899 Other long term (current) drug therapy
CPT/HCPCS: 36415; 71045; 80048; 81001; 82948; 85025; 85610; 85730; 87635; 93005; G0378; J0330; J0360; J0690; J1100; J1644; J2001; J2175; J2250; J2405; J2704; J2710; J3010; J3490; J7030